=== PATIENT | female | born 1970 | race African-American/Black ===

== ENCOUNTER 2021-12-08 09:13 | Emergency (ER) | payer OTHER ==
[2021-12-08] MEDS ORDERED: MORPHINE 4 MG/ML SYR ONE (09:58)
[2021-12-08] MEDS ORDERED: ONDANSETRON 4 MG/2 ML VIAL ONE (09:58)
[2021-12-08] MEDS ORDERED: NA CHLORIDE 0.9% 1,000 ML ONE (09:58)
[2021-12-08 10:01] LABS: Absolute Lymphocytes (CBC) 0.6 K/uL (0.7-4.9); Lymphocytes % 7.6 % (15.3-44.8); MPV 7.5 fL (7.6-11.3); RBC Red Blood Cell Count 4.67 M/uL (3.86-4.86)
[2021-12-08 10:13] LABS: Albumin 4.1 g/dL (3.4-5.0); Bilirubin Total 0.4 mg/dL (0.2-1.0); Protein, Total 9.4 g/dL (6.4-8.2)
--- NOTE | 2021-12-08 11:06 | RAD REPORT ---
EXAM DESCRIPTION: CT - Head Brain Wo Cont - 12/08/2021 10:48 am CLINICAL HISTORY: dizziness, headache, vomiting COMPARISON: No comparisons TECHNIQUE: Axial 5 mm thick images of the head were obtained without IV contrast. All CT scans are performed using dose optimization technique as appropriate and may include automated exposure control or mA/KV adjustment according to patient size. FINDINGS: No intracranial hemorrhage, mass, edema or shift of mid-line structures. No acute infarcti on changes seen. No abnormal extra-axial fluid collections. Ventricles are normal. Mastoid air cells and visualized portions of the paranasal sinuses are clear. No acute bony findings. IMPRESSION: Negative non-contrast CT head examination.
--- NOTE | 2021-12-08 11:08 | RAD REPORT ---
EXAM DESCRIPTION: CT - Abdomen Pelvis Wo Contrast - 12/08/2021 10:48 am CLINICAL HISTORY: left lower abdominal pain COMPARISON: No comparisons TECHNIQUE: Axial [address] imaging of the abdomen and pelvis was performed without IV contrast. No IV contrast was given because of allergy, abnormal renal function, patient refusal or physician re quest. No oral contrast administered. All CT scans are performed using dose optimization technique as appropriate and may include automated exposure control or mA/KV adjustment according to patient size. FINDINGS: No suspicious findings in the lung bases. The liver, spleen and pancreas show no suspicious findings on non-contrast imaging. Liver attenuation is borderline fatty infiltrated. Gallbladder and biliary tree are also without suspicious finding. G allstones can be occult on CT imaging. No hydronephrosis or suspicious renal mass. No significant adrenal finding. Isodense renal masses an d pyelonephritis cannot be excluded in the absence of IV contrast. The urinary bladder is without sig nificant finding. No uterine or ovarian abnormality evident. No gastric dilatation or gastric wall thickening. Small bowel loops are not dilated. There are severa l small bowel loops that are fluid-filled. These are more prominent than typically seen and can be as sociated with enteritis. No small bowel obstruction. No appendicitis findings. No acute colon process identifiable. No free air, free fluid or inflammatory stranding. No hernia, mass or bulky lymphadenopathy. No suspicious bony findings. IMPRESSION: Non-contrast enhanced CT abdomen and pelvis imaging shows no emergent finding. Mild prominence of the small bowel loops noted. This is nonspecific but can be seen with enteritis. Full assessment is limited is the absence of IV contrast.
--- NOTE | 2021-12-08 13:22 | EDPHYS ---
Physician Documentation [facility] Name: Mariana Shepard Age: 51 yrs Sex: Female : 1970 Arrival Date: 12/08/2021 Time: 09:14 Bed 13 Private MD: SKYLER Physician Charli Shepard HPI: 12/08 09:21 This 51 yrs old Black Female presents to ER via Ambulatory with complaints of Diarrhea, jmm Vomiting. 09:21 The patient presents to the emergency department with nausea, vomiting, diarrhea, jmm abdominal pain. Onset: The symptoms/episode began/occurred last night. Possible causes: unknown. The symptoms are aggravated by nothing. The symptoms are alleviated by nothing. Associated signs and symptoms: Pertinent positives: abdominal pain, Pertinent negatives: fever. This is a 51 year old female with a history of htn that presents to the ED with complaints vomiting, diarrhea, abdominal pain beginning last night around midnight. . Historical: - Allergies: 09:27 Aspirin; aa5 - Home Meds: 09:27 levocetirizine 5 mg oral tab 1 tab once daily [Active]; valsartan-hydrochlorothiazide aa5 320-25 mg oral tab once daily [Active]; carvedilol 12.5 mg oral tab 1 tab 2 times per day [Active]; - PMHx: 09:27 Hypertensive disorder; aa5 - PSHx: 09:27 Uterine Fibroids removed; aa5 - Immunization history:: Adult Immunizations unknown. - Social history:: Smoking status: Patient denies any tobacco usage or history of. ROS: 09:21 Constitutional: Negative for fever, chills, and weight loss, Cardiovascular: Negative jmm for chest pain, palpitations, and edema, Respiratory: Negative for shortness of breath, cough, wheezing, and pleuritic chest pain. 09:21 Abdomen/GI: Positive for abdominal pain, nausea and vomiting, diarrhea. 09:21 All other systems are negative. Exam: 09:21 Constitutional: This is a well developed, well nourished patient who is awake, alert, jmm and in no acute distress. Head/Face: atraumatic. Eyes: EOMI, no conjunctival erythema appreciated ENT: Moist Mucus Membranes Neck: Trachea midline, Supple Chest/axilla: Normal chest wall appearance and motion. Cardiovascular: Regular rate and rhythm. No edema appreciated Respiratory: Normal respirations, no respiratory distress appreciated 09:21 Back: Normal ROM Skin: General appearance color normal MS/ Extremity: Moves all extremities, no obvious deformities appreciated, no edema noted to the lower extremities Neuro: Awake and alert Psych: Behavior is normal, Mood is normal, Patient is cooperative and pleasant 09:21 Abdomen/GI: Inspection: abdomen appears normal, Bowel sounds: normal, Palpation: soft, mild abdominal tenderness, in all quadrants. Vital Signs: 09:26 BP 157 / 107; Pulse 125; Resp 18 S; Temp 99.7(O); Pulse Ox 97% on R/A; Weight 94.8 kg aa5 (R); Height 5 ft. 7 in. (170.18 cm) (R); 09:59 BP 152 / 107; Pulse 126; Resp 12; Pulse Ox 95% on R/A; ww 10:15 BP 151 / 93; Pulse 125; Resp 14; Pulse Ox 93% on R/A; ww 11:35 BP 128 / 77; Pulse 120; Resp 18; Pulse Ox 96% on R/A; ww 12:00 BP 122 / 81; Pulse 115; Resp 16; Pulse Ox 95% on R/A; ww 13:30 BP 115 / 78; Pulse 117; Resp 16; Pulse Ox 95% on R/A; ww 09:26 Body Mass Index 32.73 (94.80 kg, 170.18 cm) aa5 MDM: 09:21 Patient medically screened. [facility] 13:19 Data reviewed: vital signs, nurses notes. Counseling: I had a detailed discussion with ana the patient and/or guardian regarding: the historical points, exam findings, and any diagnostic results supporting the discharge/admit diagnosis, lab results, radiology results, the need for outpatient follow up, to return to the emergency department if symptoms worsen or persist or if there are any questions or concerns that arise at home. ED course: Patient states feeling much better. Patient is able to tolerate PO in the ED. Patient advised to follow up with pcp and otherwise given strict return precautions. patient understood and agrees with the plan of care. . 12/08 09:45 Order name: CBC with Diff; Complete Time: 10:10 [facility] 12/08 09:45 Order name: CMP; Complete Time: 10:17 [facility] 12/08 09:45 Order name: Lipase; Complete Time: 10:17 [facility] 12/08 10:12 Order name: CT Head Brain wo Cont; Complete Time: 11:18 [facility] 12/08 10:13 Order name: CT Abd/Pelvis - Without Contrast; Complete Time: 11:18 [facility] 12/08 09:45 Order name: IV Saline Lock; Complete Time: 09:49 [facility] 12/08 09:45 Order name: Labs collected and sent; Complete Time: 09:49 [facility] Administered Medications: 09:50 Drug: NS 0.9% 1000 ml Route: IV; Rate: 1 bolus; Site: right antecubital; ww 13:32 Follow up: Response: No adverse reaction; IV Status: Completed infusion ww 09:50 Drug: Zofran (Ondansetron) 4 mg Route: IVP; Site: right antecubital; ww 13:33 Follow up: Response: No adverse reaction ww 09:58 Drug: morphine 4 mg Route: IVP; Infused Over: 4 mins; Site: right antecubital; ww 13:32 Follow up: Response: No adverse reaction Disposition Summary: 12/08/21 13:21 Discharge Ordered Location: Home [facility] Condition: Stable [facility] Diagnosis - Vomiting jmm - Diarrhea, unspecified m Followup: [facility] - With: Private Physician - When: 2 - 3 days - Reason: Recheck today's complaints, Continuance of care, Re-evaluation by your physician Discharge Instructions: - Discharge Summary Sheet [facility] - Food Choices to Help Relieve Diarrhea, Adult jmm - Vomiting, Adult jmm Forms: - Medication Reconciliation Form [facility] - Thank You Letter [facility] - Antibiotic Education [facility] - Prescription Opioid Use [facility] Prescriptions: - ondansetron 4 mg Oral tablet,disintegrating - take 1 tablet by ORAL route every 4-6 hours; 20 tablet; Refills: 0, Product [facility] Selection Permitted - dicyclomine 20 mg Oral Tablet - take 1 tablet by ORAL route 4 times per day; 30 tablet; Refills: 0, Product [facility] Selection Permitted Signatures: Dispatcher [employer] Charli Beverly MD MD cha Mickail, Joel, PA PA jmm Calderon, Audri, RN RN aa5 Teresa Neil RN RN ww
--- NOTE | 2021-12-08 13:22 | ER ---
Nurse's Notes [facility] Name: Mariana Shepard Age: 51 yrs Sex: Female : 1970 Arrival Date: 12/08/2021 Time: 09:14 Bed 13 Private MD: Diagnosis: Vomiting;Diarrhea, unspecified Presentation: 12/08 09:26 Chief complaint: Patient states: "I think I got food poisoning". Pt c/o aa5 nausea/vomiting/diarrhea and abd cramping since yesterday. Coronavirus screen: diarrhea, nausea, vomiting. Ebola Screen: No symptoms or risks identified at this time. Initial Sepsis Screen: Does the patient meet any 2 criteria? HR > 90 bpm. Does the patient have a suspected source of infection? No. Patient's initial sepsis screen is negative. Risk Assessment: Do you want to hurt yourself or someone else? Patient reports no desire to harm self or others. Onset of symptoms was November 2021. 09:26 Acuity: YANDEL 3 aa5 09:26 Method Of Arrival: Ambulatory aa5 Historical: - Allergies: 09:27 Aspirin; aa5 - Home Meds: 09:27 levocetirizine 5 mg oral tab 1 tab once daily [Active]; valsartan-hydrochlorothiazide aa5 320-25 mg oral tab once daily [Active]; carvedilol 12.5 mg oral tab 1 tab 2 times per day [Active]; - PMHx: 09:27 Hypertensive disorder; aa5 - PSHx: 09:27 Uterine Fibroids removed; aa5 - Immunization history:: Adult Immunizations unknown. - Social history:: Smoking status: Patient denies any tobacco usage or history of. Screenin:58 Abuse screen: Denies threats or abuse. Denies injuries from another. Nutritional ww screening: No deficits noted. Tuberculosis screening: No symptoms or risk factors identified. Fall Risk None identified. Assessment: 09:59 General: Appears uncomfortable, Behavior is calm, cooperative. Pain: Complains of pain ww in left lower quadrant. Neuro: Level of Consciousness is awake, alert, obeys commands, Oriented to person, place, time, situation, Moves all extremities. Speech is normal. Cardiovascular: Capillary refill < 3 seconds Patient's skin is warm and dry. Rhythm is sinus tachycardia Chest pain is denied. Respiratory: Airway is patent Respiratory effort is even, unlabored, Respiratory pattern is regular, symmetrical. GI: Abdomen is round Abdomen is tender to palpation in umbilical area and left lower quadrant Reports lower abdominal pain, diarrhea, nausea, vomiting. Derm: No signs and/or symptoms reported regarding the dermatologic system. Skin is intact, is healthy with good turgor. 10:35 Reassessment: Patient appears in no apparent distress at this time. No changes from ww previously documented assessment. Patient and/or family updated on plan of care and expected duration. Pain level reassessed. Patient is alert, oriented x 3, equal unlabored respirations, skin warm/dry/pink. transported to CT scan. 11:35 Reassessment: Patient appears in no apparent distress at this time. No changes from ww previously documented assessment. Patient and/or family updated on plan of care and expected duration. Pain level reassessed. Patient is alert, oriented x 3, equal unlabored respirations, skin warm/dry/pink. still complaining of having a headache Patient states feeling better. 12:15 Reassessment: Patient appears in no apparent distress at this time. No changes from ww previously documented assessment. Patient and/or family updated on plan of care and expected duration. Pain level reassessed. Patient is alert, oriented x 3, equal unlabored respirations, skin warm/dry/pink. 13:29 Reassessment: Patient appears in no apparent distress at this time. No changes from ww previously documented assessment. Patient and/or family updated on plan of care and expected duration. Pain level reassessed. Patient is alert, oriented x 3, equal unlabored respirations, skin warm/dry/pink. Vital Signs: 09:26 BP 157 / 107; Pulse 125; Resp 18 S; Temp 99.7(O); Pulse Ox 97% on R/A; Weight 94.8 kg aa5 (R); Height 5 ft. 7 in. (170.18 cm) (R); 09:59 BP 152 / 107; Pulse 126; Resp 12; Pulse Ox 95% on R/A; ww 10:15 BP 151 / 93; Pulse 125; Resp 14; Pulse Ox 93% on R/A; ww 11:35 BP 128 / 77; Pulse 120; Resp 18; Pulse Ox 96% on R/A; ww 12:00 BP 122 / 81; Pulse 115; Resp 16; Pulse Ox 95% on R/A; ww 13:30 BP 115 / 78; Pulse 117; Resp 16; Pulse Ox 95% on R/A; ww 09:26 Body Mass Index 32.73 (94.80 kg, 170.18 cm) [facility] ED Course: 09:14 Patient arrived in ED. am2 09:19 Dwaine Perez PA is PHCP. [facility] 09:19 Charli Shepard MD is Attending Physician. [facility] 09:26 Arm band placed on. [facility] 09:27 Triage completed. [facility] 09:27 Teresa Neil, EMANUEL is Primary Nurse. ww 09:45 Inserted saline lock: 20 gauge in right antecubital area, using aseptic technique. ww Blood collected. 09:58 Patient has correct armband on for positive identification. Bed in low position. Call ww light in reach. Side rails up X2. Adult w/ patient. Client placed on continuous cardiac and pulse oximetry monitoring. NIBP monitoring applied. Warm blanket given. 10:49 CT Head Brain wo Cont In Process Unspecified. EDMS 10:49 CT Abd/Pelvis - Without Contrast In Process Unspecified. EDMS 13:45 No provider procedures requiring assistance completed. IV discontinued, intact, ww bleeding controlled, No redness/swelling at site. Pressure dressing applied. Administered Medications: 09:50 Drug: NS 0.9% 1000 ml Route: IV; Rate: 1 bolus; Site: right antecubital; ww 13:32 Follow up: Response: No adverse reaction; IV Status: Completed infusion ww 09:50 Drug: Zofran (Ondansetron) 4 mg Route: IVP; Site: right antecubital; ww 13:33 Follow up: Response: No adverse reaction ww 09:58 Drug: morphine 4 mg Route: IVP; Infused Over: 4 mins; Site: right antecubital; ww 13:32 Follow up: Response: No adverse reaction ww Medication: 09:59 VIS not applicable for this client. ww Outcome: 13:21 Discharge ordered by . [facility] 13:45 Discharged to home with family. ww 13:45 Condition: stable 13:45 Discharge instructions given to patient, Instructed on discharge instructions, follow up and referral plans. medication usage, safety practices, Demonstrated understanding of instructions, follow-up care, medications, Prescriptions given X 2. 13:46 Patient left the ED. ww Signatures: Dispatcher [employer] Dwaine Coulter PA PA jmm Calderon, Audri, EMANUEL RN aa5 Gertrude Sow am2 Teresa Neil, EMANUEL perez
[2021-12-08 14:00] VITALS: TEMP 99.7
[2021-12-08 14:07] VITALS: O2SAT 95
[2021-12-08 14:09] VITALS: BP 115/78
== END 2021-12-08 13:46 | disposition home or self-care (01) ==
LOC: ER 09:13
DX: R11.2 Nausea with vomiting, unspecified (principal); R19.7 Diarrhea, unspecified; I10 Essential (primary) hypertension; Z88.6 Allergy status to analgesic agent
CPT/HCPCS: 85025; 36415; 83690; 80053; 70450; 74176; J7030; J2405; 96361; 96374; 96375; 99284